=== PATIENT | female | born 1995 | race African-American/Black ===

== ENCOUNTER → 2018-03-28 | Outpatient (CLI) | payer BC ==
--- NOTE | 2018-03-28 17:15 | KCIC ---
MR of the right foot HISTORY: Pain and swelling at the first toe. Pain at the forefoot with weightbearing. Injury 3 days ago. TECHNIQUE: Routine multiplanar sequences are obtained. The scan was centered at the forefoot, but some additional images were obtained through the posterior foot. FINDINGS: There is motion degradation which may limit the exam accuracy. No apparent tendon rupture or significant tendon sheath fluid. No evidence of an acute fracture. Marrow edema at the medial hallux sesamoid. Mild thickening and edematous signal within the Lisfranc ligament complex, at least the interosseous band, possibly the plantar band, detail limited by the motion. No evidence of tarsometatarsal joint subluxation or dislocation. However, there is mild soft tissue edema around the tarsometatarsal joints. No evidence of bone marrow edema at the joints. No large joint effusion. There is a small amount of fluid at the first MTP joint dorsally compatible with a small effusion or small ganglion cyst. IMPRESSION: 1. Small effusion or ganglion cyst at the first MTP joint. 2. Mild marrow edema signal at the medial hallux sesamoid, could reflect sesamoiditis, traumatic contusion or nondisplaced fracture. 3. Ill-defined soft tissue edema or contusion around the tarsometatarsal joints and tarsal joints. Lisfranc ligament sprain or midfoot sprain is suggested, but ligamentous evaluation limited by the motion. No evidence of tarsometatarsal dislocation. Electronically signed by: Jerome Thompson MD (03/28/2018 5:10 PM) [id number]
== END | disposition home or self-care (01) ==
LOC: KCIC MRI 15:53
PROVIDERS: ATTEND Physician Assistant
DX: M20.5X1 Other deformities of toe(s) (acquired), right foot (principal); R60.0 Localized edema; R26.2 Difficulty in walking, not elsewhere classified
CPT/HCPCS: 73718